=== PATIENT | male | born 1980 | race Caucasian/White ===

== ENCOUNTER 2020-01-06 12:33 | Emergency (ER) | payer SELFPAY ==
[~2020-01-06] VITALS: Ht 182.9 cm; Wt 92.0 kg
--- NOTE | 2020-01-06 13:46 | NUR ---
PT STATES HE HAD TO LEAVE [place] IN A HURRY HAS BEEN HOMELESS FOR A WEEK NOW, BEFORE HE LEFT [place] HE SLIPPED AND FELL ON THE ICE AND INJURED HIS R SHOULDER. PT WITH LARGE BRUISE ON R SHOULDER, FULL ROM NOTED. PT STATES MAIN REASON FOR VISIT IS HE EJACULATED BLOOD TODAY. PT DENIES TRAUMA TO GROIN REGION OTHER URINARY SYMPTOMS
--- NOTE | 2020-01-06 14:15 | NUR ---
break RN note: pt back from [place] at this time.
[2020-01-06 14:19] VITALS: BP 154/100
[2020-01-06] MEDS ORDERED: CEFTRIAXONE 250 MG IM ONE (14:30)
--- NOTE | 2020-01-06 14:40 | NUR ---
report given back to primary DINA Traore.
[2020-01-06 14:47] LABS: MICROSCOPIC NOT IND
[2020-01-06 14:54] LABS: CULTURE INDICATED? NO
[2020-01-06] MEDS ORDERED: CEFTRIAXONE 250 MG ONE (15:03)
--- NOTE | 2020-01-06 16:00 | NUR ---
PT REFUSING TO LEAVE, SECURITY CALLED PT DEMANDING A CANE STATES HIS INJECTION SITE IS CAUSING HIM TO NOT BE ABLE TO WALK. PT HAS BEEN SEEN IN ROOM AMBULATING AND WAS ABLE TO DRESS HIMSELF. PT WAS PROVIDED WITH A CANE. PT NOW DEMANDING TO SPEAK TO LAURA REGARDING MEDICATION SCRIPTS. LAURA IN TO SPEAK WIHT PT. WENT THROUGH DISCHARGE PACKET WITH PT AGAIN.
== END 2020-01-06 16:42 | disposition home or self-care (01) ==
LOC: ED 16:36
DX: S42.031A Displaced fracture of lateral end of right clavicle, initial encounter for closed fracture (principal); N45.1 Epididymitis; F17.200 Nicotine dependence, unspecified, uncomplicated; G89.29 Other chronic pain; W00.2XXA Other fall from one level to another due to ice and snow, initial encounter; Y93.89 Activity, other specified; Y92.89 Other specified places as the place of occurrence of the external cause; Y99.8 Other external cause status
CPT/HCPCS: 29105; 73000; 76870; 81003; 96372; 99284; J0696